=== PATIENT | male | born 1940 | race Caucasian/White ===

== ENCOUNTER 2017-08-06 15:00 | Emergency (ER) | payer MEDICARE, OTHER ==
[2017-08-06 15:09] VITALS: TEMP 96.9
--- NOTE | 2017-08-06 15:09 | ED.PDOC ---
History of Present Illness - General Chief Complaint: Exposure to Heat or Cold Stated Complaint: Dizziness, weakness, blurred vision Time Seen by Provider: 08/06/17 15:02 Source: patient, RN notes reviewed, Vital Signs reviewed Exam Limitations: no limitations - History of Present Illness Timing/Duration: 1-3 hours Severity: moderate Improving Factors: rest Worsening Factors: movement Associated Symptoms: diaphoresis, malaise, nausea/vomiting, weakness - pt reports he was out in the heat all day today and started to become dizzy, light headed and confused; after cooling down for the last 30 minutes patient reports that he is feeling better Allergies/Adverse Reactions: Allergies NO KNOWN ALLERGY Allergy (Unverified 09/06/13 05:38) Home Medications: Ambulatory Orders Amoxicillin & Pot Clavulanate [Augmentin] 875 mg PO BID #20 tab 09/06/13 Aspirin [Aspirin EC] 81 mg PO 09/06/13 Atorvastatin Calcium [Lipitor] 20 mg PO 09/06/13 Benadryl 09/06/13 Pantoprazole Sodium 40 mg PO 09/06/13 Pseudoephedrine HCl [Sudafed 24 Hour] 240 mg PO DAILY #10 tab 09/06/13 Tamsulosin [Flomax] 0.4 mg PO QD 09/06/13 Review of Systems - Review of Systems Constitutional: States: diaphoresis EENTM: States: blurred vision, double vision Respiratory: States: no symptoms reported Cardiology: Denies: chest pain, edema, palpitations, syncope Gastrointestinal/Abdominal: States: nausea. Denies: abdominal pain, constipation Genitourinary: Denies: dysuria, frequency, hematuria Musculoskeletal: States: muscle pain Skin: States: other - diaphoresis Neurological: States: weakness, other - confusion Endocrine: States: no symptoms reported Hematologic/Lymphatic: States: no symptoms reported Past Medical History (General) - Patient Medical History Hx Stroke: Yes - tia Hx Cardiac Disorders: Yes Hx Cancer: Yes - prostate - Vaccination History Hx Tetanus, Diphtheria Vaccination: No Family Medical History - Family History Father Family History: Unknown Physical Exam - Physical Exam General Appearance: Alert, No apparent distress Eye Exam: bilateral normal Ears, Nose, Throat: hearing grossly normal, normal ENT inspection, other - dry membranes Neck: non-tender, full range of motion, supple, normal inspection Respiratory: chest non-tender, lungs clear, normal breath sounds, no respiratory distress, no accessory muscle use Cardiovascular/Chest: normal peripheral pulses, regular rate, rhythm, no edema, no gallop, no JVD, no murmur Peripheral Pulses: radial,right: 2+ Gastrointestinal/Abdominal: non tender, soft Back Exam: normal inspection, no CVA tenderness, no vertebral tenderness Extremity: normal range of motion, non-tender, normal inspection, no pedal edema , no calf tenderness Neurologic: valve setter II-XII nml as tested, no motor/sensory deficits, alert, normal mood/affect, oriented x 3 Skin Exam: normal color Lymphatic: no adenopathy Progress - Progress Progress: 08/06/17 17:20 pt reports feels much improved, discussed lab results and need to abstain from further heat exposure. Will give patient another bolus of NS and recheck labs for improvement 08/06/17 18:13 08/06/17 15:12 URINALYSIS Stat 08/06/17 15:13 URINE DRUG SCREEN, 7 ASSAY Stat 08/06/17 15:30 EKG STAT Laboratory Results WBC 4.0 K/mm3 (4.8-10.8) L 08/06/17 15:00 RBC 4.44 M/mm3 (4.70-6.10) L 08/06/17 15:00 Hgb 13.3 gm/dL (14.0-18.0) L 08/06/17 15:00 Hct 39.7 % (42.0-52.0) L 08/06/17 15:00 MCV 89.3 fl (80.0-94.0) 08/06/17 15:00 MCH 29.9 pg (27.0-31.0) 08/06/17 15:00 MCHC 33.6 g/dL (33.0-37.0) 08/06/17 15:00 RDW 13.9 % (11.5-14.5) 08/06/17 15:00 Plt Count 190 K/mm3 (130-400) 08/06/17 15:00 MPV 8.5 fl (7.40-10.4) 08/06/17 15:00 Absolute Neuts (auto) 2.50 K/uL (1.8-6.8) 08/06/17 15:00 Absolute Lymphs (auto) 0.90 K/uL (1.0-3.4) L 08/06/17 15:00 Absolute Monos (auto) 0.50 K/uL (0.2-0.8) 08/06/17 15:00 Absolute Eos (auto) 0.10 K/uL (0.0-0.4) 08/06/17 15:00 Absolute Basos (auto) 0.00 K/uL (0.0-0.1) 08/06/17 15:00 Neutrophils % 62.8 % (42.0-78.0) 08/06/17 15:00 Lymphocytes % 23.4 % (20.0-50.0) 08/06/17 15:00 Monocytes % 11.6 % (2.0-9.0) H 08/06/17 15:00 Eosinophils % 1.6 % (1.0-5.0) 08/06/17 15:00 Basophils % 0.6 % (0.0-2.0) 08/06/17 15:00 Sodium 141 mmol/L (135-145) 08/06/17 15:00 Potassium 3.9 mmol/L (3.6-5.0) 08/06/17 15:00 Chloride 110 mmol/L (101-111) 08/06/17 15:00 Carbon Dioxide 23 mmol/L (21-31) 08/06/17 15:00 Anion Gap 11.9 (12-18) L 08/06/17 15:00 BUN 34 mg/dL (7-18) H 08/06/17 15:00 Creatinine 1.64 mg/dL (0.6-1.3) H 08/06/17 17:37 BUN/Creatinine Ratio 16.9 (10-20) 08/06/17 15:00 Random Glucose 88 mg/dL (70-105) 08/06/17 15:00 Serum Osmolality 288.3 mOsm/L (275-295) 08/06/17 15:00 Calcium 9.3 mg/dL (8.4-10.2) 08/06/17 15:00 Total Bilirubin 1.1 mg/dL (0.2-1.0) H 08/06/17 15:00 AST 26 IU/L (10-42) 08/06/17 15:00 ALT 26 IU/L (10-60) 08/06/17 15:00 Alkaline Phosphatase 84 IU/L (42-121) 08/06/17 15:00 Creatine Kinase 361 IU/L (38-174) H* 08/06/17 17:37 CK-MB (CK-2) 7.6 ng/mL (0.0-4.4) H* 08/06/17 17:37 CK-MB (CK-2) % 2.11 % (0.0-3.5) 08/06/17 17:37 Troponin I < 0.02 ng/mL (0.01-0.05) 08/06/17 17:37 Serum Total Protein 6.9 gm/dL (6.4-8.2) 08/06/17 15:00 Albumin 4.4 g/dl (3.2-5.5) 08/06/17 15:00 Globulin 2.5 gm/dL (2.3-3.5) 08/06/17 15:00 Albumin/Globulin Ratio 1.8 (1.1-1.9) 08/06/17 15:00 Ethyl Alcohol 0.00 mg/dL (0-79) 08/06/17 15:00 Departure - Departure Clinical Impression: Dehydration, Acute confusional state Heat stroke Qualifiers: Encounter type: initial encounter Qualified Code(s): T67.0XXA - Heatstroke and sunstroke, initial encounter Rhabdomyolysis Qualifiers: Rhabdomyolysis type: non-traumatic Qualified Code(s): M62.82 - Rhabdomyolysis Acute renal failure Qualifiers: Acute renal failure type: unspecified Qualified Code(s): N17.9 - Acute kidney failure, unspecified Time of Disposition: 18:14 Disposition: Discharge to Home or Self Care Condition: Good Departure Forms: ED Discharge - Pt. Copy, Patient Portal Self Enrollment Diet: resume usual diet Activity: increase activity as tolerated - no further heat exposure for 48 hours Home Medications: Ambulatory Orders Amoxicillin & Pot Clavulanate [Augmentin] 875 mg PO BID #20 tab 09/06/13 Aspirin [Aspirin EC] 81 mg PO 09/06/13 Atorvastatin Calcium [Lipitor] 20 mg PO 09/06/13 Benadryl 09/06/13 Pantoprazole Sodium 40 mg PO 09/06/13 Pseudoephedrine HCl [Sudafed 24 Hour] 240 mg PO DAILY #10 tab 09/06/13 Tamsulosin [Flomax] 0.4 mg PO QD 09/06/13 Additional Instructions: continue to fluid hydrate at home and avoid further heat exposure; return if symptoms return Critical Care Note - Critical Care Note Total Time (mins): 35
[2017-08-06] MEDS ORDERED: SODIUM CHLORIDE 0.9% 1000ML 1,000 ML IVS ONE ×2 (15:13→16:32)
--- NOTE | 2017-08-06 15:48 | CT ---
EXAM DESCRIPTION: Head CLINICAL HISTORY: ams COMPARISON: None available TECHNIQUE: Contiguous axial images through the head were obtained without intravenous contrast administration. Sagittal and coronal reconstructions were reviewed. FINDINGS: Ill-defined hypodensities are identified in the bilateral periventricular parietal white matter most likely representing chronic small vessel ischemic changes. No evidence of acute major vascular territorial infarct or intraparenchymal hemorrhage. No intra-axial or extra-axial fluid collections are identified. The ventricles and cisterns appear normal in caliber. The sella and suprasellar regions appear normal. The structures of the posterior fossa are intact. The globes are intact bilaterally. The visualized paranasal sinuses and mastoid air cells are well-aerated. Review of the bones demonstrates no gross instability. IMPRESSION: No CT evidence of acute intracranial process. This exam was performed according to our departmental dose-optimization program, which includes automated exposure control, adjustment of the mA and/or kV according to patient size and/or use of iterative reconstruction technique. Electronically signed by: Wendy Pedro MD 08/06/2017 3:47 PM CDT
[2017-08-06 19:37] VITALS: BP 129/65; O2SAT 99
== END 2017-08-06 19:37 | disposition home or self-care (01) ==
LOC: ER 15:00
DX: T67.0XXA Heatstroke and sunstroke, initial encounter (principal); E86.0 Dehydration; R41.0 Disorientation, unspecified; M62.82 Rhabdomyolysis; N17.9 Acute kidney failure, unspecified; Z86.73 Personal history of transient ischemic attack (TIA), and cerebral infarction without residual deficits; Z85.46 Personal history of malignant neoplasm of prostate; Z79.82 Long term (current) use of aspirin; X30.XXXA Exposure to excessive natural heat, initial encounter; Y92.9 Unspecified place or not applicable
CPT/HCPCS: 36415; 70450; 80053; 80307; 80320; 81001; 82550; 82553; 82565; 84484; 85025; 93005; J7030

== ENCOUNTER 2019-01-19 19:43 | Emergency (ER) | payer MEDICARE, OTHER ==
[2019-01-19] MEDS ORDERED: SODIUM CHLORIDE 0.9% (FLUSH) 10 ML SYG IV PRN (20:13)
[2019-01-19] MEDS: METOPROLOL TARTRATE INJ 5 MG/5 ML VIAL IV ONE ×2 (20:39→20:46)
[2019-01-19] MEDS ORDERED: hydrALAZINE HCl 20 MG/ML VIAL IV ONE ×2 (20:45→22:35)
--- NOTE | 2019-01-19 21:06 | RAD ---
EXAM DESCRIPTION: Chest,1 View CLINICAL HISTORY: confusion COMPARISON: None FINDINGS: Cardiac silhouette is within normal limits. There is no focal parenchymal or pleural disease. There is no acute osseous process visualized. IMPRESSION: No evidence of acute cardiopulmonary disease. Electronically signed by: Augustine Fernandez MD 01/19/2019 9:04 PM [facility]
--- NOTE | 2019-01-19 21:09 | CT ---
EXAM DESCRIPTION: Head CLINICAL HISTORY: confusion and acute memory deficit COMPARISON: August 06, 2017 TECHNIQUE: Contiguous axial images of the brain were obtained without the administration of intravenous contrast.This exam was performed according to our departmental dose-optimization program, which includes automated exposure control, adjustment of the mA and/or kV according to patient size and/or use of iterative reconstruction technique. FINDINGS: There is no acute intracranial hemorrhage or mass effect. Areas of low attenuation in the periventricular and subcortical white matter are nonspecific but suggestive of small vessel disease. There is generalized atrophy. Ventricular system is within normal limits. There is adequate blair-white matter differentiation. There is no skull fracture there is mucoperiosteal thickening of the right maxillary sinus and left ethmoid sinuses compatible with chronic sinusitis changes.. There is atherosclerosis. IMPRESSION: No acute intracranial abnormalities. Electronically signed by: Augustine Fernandez MD 01/19/2019 9:08 PM [facility]
--- NOTE | 2019-01-19 21:18 | ED.PDOC ---
History of Present Illness - General Chief Complaint: Neuro Symptoms/Deficits Stated Complaint: high bp, and cant remember things Time Seen by Provider: 01/19/19 20:13 Source: patient, RN notes reviewed, Vital Signs reviewed, family - Exam Limitations: no limitations - History of Present Illness Initial Comments: patient is a 78-year-old white male who presents with acute onset of confusion at approximately 6 PM this evening. Patient became confused, had no short-term memory and had difficulty remembering anything he's been working on today. Patient denied any headache, dizziness, blurry vision, chest pain, shortness of breath, nausea, vomiting, diarrhea. Patient also denies any paresthesias. Timing/Duration: 1-3 hours Severity: severe Improving Factors: nothing Worsening Factors: nothing Associated Symptoms: confusion Allergies/Adverse Reactions: Allergies NO KNOWN ALLERGY Allergy (Unverified 09/06/13 05:38) Home Medications: Ambulatory Orders Aspirin [Aspirin EC] 81 mg PO 09/06/13 Atorvastatin Calcium [Lipitor] 20 mg PO 09/06/13 Pantoprazole Sodium 40 mg PO 09/06/13 Tamsulosin [Flomax] 0.4 mg PO QD 09/06/13 Clonidine HCl 0.1 mg PO BID #10 tab 01/19/19 Review of Systems - Review of Systems Constitutional: States: see HPI. Denies: chills, fever, malaise, weakness EENTM: States: no symptoms reported. Denies: blurred vision, double vision, nose congestion Respiratory: States: no symptoms reported. Denies: cough, orthopnea Cardiology: States: no symptoms reported. Denies: chest pain, palpitations, syncope Gastrointestinal/Abdominal: States: no symptoms reported. Denies: abdominal pain Genitourinary: States: no symptoms reported Musculoskeletal: States: no symptoms reported Skin: States: no symptoms reported Neurological: States: see HPI. Denies: paresthesia, pre-existing deficit, seizure, tingling, tremors Endocrine: States: no symptoms reported Hematologic/Lymphatic: States: no symptoms reported All other Systems: Reviewed and Negative Past Medical History (General) - Patient Medical History Hx Seizures: No Hx Stroke: Yes - tia Hx Dementia: No Hx Asthma: No Hx of COPD: No Hx Cardiac Disorders: Yes Hx Congestive Heart Failure: No Hx Pacemaker: No Hx Hypertension: Yes Hx Thyroid Disease: No Hx Diabetes: No Hx Gastroesophageal Reflux: No Hx Renal Disease: No Hx Cancer: Yes - prostate Hx of HIV: No Hx Hepatitis C: No Hx MRSA: No Surgical History: other - Vaccination History Hx Tetanus, Diphtheria Vaccination: No Hx Influenza Vaccination: Yes Hx Pneumococcal Vaccination: Yes Immunizations Up to Date: Yes - Social History Hx Tobacco Use: No Hx Chewing Tobacco Use: No Hx Alcohol Use: No Hx Substance Use: No Hx Substance Use Treatment: No Hx Depression: No Feels Threatened In Home Enviroment: No Feels Threatened In a Relationship: No Hx Physical Abuse: No Hx Emotional Abuse: No Hx Suspected Abuse: No - Activities of Daily Living Hospice Agency (if applicable):: None - Female History Patient is a Female of Child Bearing Age (10 -59 yrs old): No Family Medical History - Family History Father Family History: Unknown Living Status: Physical Exam - Physical Exam General Appearance: Alert, Comfortable, Well Developed, Well Groomed, Well Hydrated, Well Nourished Eye Exam: bilateral normal ENT Exam: normal ENT inspection, hearing grossly normal, pharynx normal Neck: non-tender, full range of motion, supple, normal inspection, trachea midline Respiratory: chest non-tender, lungs clear, normal breath sounds, no respiratory distress, no accessory muscle use Cardiovascular/Chest: normal peripheral pulses, regular rate, rhythm, no edema, no gallop, no JVD, no murmur Peripheral Pulses: radial,right: 2+, radial,left: 2+ Gastrointestinal/Abdominal: normal bowel sounds, non tender, soft, no organomegaly, no pulsatile mass Back Exam: normal inspection, no CVA tenderness, no vertebral tenderness Extremities Exam: non-tender, normal range of motion, no evidence of injury Mental Status: alert, oriented x 3 [employer] Exam: normal hearing, normal speech, PERRL Coordination/Gait: normal finger to nose, normal gait, negative Romberg's sign Motor/Sensory: no motor deficit, no sensory deficit, no pronator drift, negative Babinski's sign, positive Babinski's sign Skin Exam: normal color, warm/dry Progress - Progress Progress: differential diagnosis: CVA, TIA, hypertensive encephalopathy, toxic K Chin among others 01/19/19 21:24 Patient's symptoms have markedly improved and essentially have resolved after his blood pressure was better controlled. Waiting final results of all laboratory tests. 01/19/19 21:49 Patient's lab results are unremarkable. Symptoms have resolved after better control the blood pressure. Plan on discharge home at this time. And his and they voice understanding and agreement. Patient to follow up with PCP in the morning for further evaluation and medication management. 01/19/19 21:50 Wolf Trivedi M.D. #[id number] - Results/Orders Results/Orders: 01/19/19 20:13 IV Care:Saline Lock per Protoc QSHIFT Telemetry .ONCE Sodium Chloride 0.9% (Flush) [Saline Flush Syringe] 10 ml IV PRN PRN 01/19/19 20:14 EKG Assessment ONCE 01/19/19 20:15 EKG STAT URINALYSIS Stat Laboratory Results - last 24 hr 01/19/19 01/19/19 01/19/19 20:15 20:15 20:15 WBC 4.6 L RBC 4.87 Hgb 14.1 Hct 43.2 MCV 88.7 MCH 29.0 MCHC 32.7 L RDW 14.0 Plt Count 188 MPV 8.4 Absolute Neuts (auto) 3.10 Absolute Lymphs (auto) 0.80 L Absolute Monos (auto) 0.40 Absolute Eos (auto) 0.30 Absolute Basos (auto) 0.00 Neutrophils % 66.7 Lymphocytes % 18.1 L Monocytes % 8.3 Eosinophils % 6.0 H Basophils % 0.9 PT 9.5 INR 0.95 PTT (SP) 26.5 Sodium 138 Potassium 3.6 Chloride 105 Carbon Dioxide 24 Anion Gap 12.6 BUN 18 Creatinine 1.05 BUN/Creatinine Ratio 17.1 POC Glucose Random Glucose 92 Serum Osmolality 277.2 Calcium 9.3 Total Bilirubin 0.6 AST 25 ALT 28 Alkaline Phosphatase 101 Creatine Kinase 184 H CK-MB (CK-2) 4.4 CK-MB (CK-2) % 2.39 Troponin I < 0.02 Serum Total Protein 7.1 Albumin 4.2 Globulin 2.9 Albumin/Globulin Ratio 1.4 01/19/19 20:23 WBC RBC Hgb Hct MCV MCH MCHC RDW Plt Count MPV Absolute Neuts (auto) Absolute Lymphs (auto) Absolute Monos (auto) Absolute Eos (auto) Absolute Basos (auto) Neutrophils % Lymphocytes % Monocytes % Eosinophils % Basophils % PT INR PTT (SP) Sodium Potassium Chloride Carbon Dioxide Anion Gap BUN Creatinine BUN/Creatinine Ratio POC Glucose 78 Random Glucose Serum Osmolality Calcium Total Bilirubin AST ALT Alkaline Phosphatase Creatine Kinase CK-MB (CK-2) CK-MB (CK-2) % Troponin I Serum Total Protein Albumin Globulin Albumin/Globulin Ratio EXAM DESCRIPTION: Chest,1 View CLINICAL HISTORY: confusion COMPARISON: None FINDINGS: Cardiac silhouette is within normal limits. There is no focal parenchymal or pleural disease. There is no acute osseous process visualized. IMPRESSION: No evidence of acute cardiopulmonary disease. Electronically signed by: Augustine Fernandez MD 01/19/2019 9:04 PM EXAM DESCRIPTION: Head CLINICAL HISTORY: confusion and acute memory deficit COMPARISON: August 06, 2017 TECHNIQUE: Contiguous axial images of the brain were obtained without the administration of intravenous contrast.This exam was performed according to our departmental dose-optimization program, which includes automated exposure control, adjustment of the mA and/or kV according to patient size and/or use of iterative reconstruction technique. FINDINGS: There is no acute intracranial hemorrhage or mass effect. Areas of low attenuation in the periventricular and subcortical white matter are nonspecific but suggestive of small vessel disease. There is generalized atrophy. Ventricular system is within normal limits. There is adequate blair- white matter differentiation. There is no skull fracture there is mucoperiosteal thickening of the right maxillary sinus and left ethmoid sinuses compatible with chronic sinusitis changes.. There is atherosclerosis. IMPRESSION: No acute intracranial abnormalities. Electronically signed by: Augustine Fernandez MD 01/19/2019 9:08 PM EKG performed on 19 January 2019 at 2020 hrs.: Sinus rhythm with first-degree AV block at 62 bpm, normal axis deviation, no ST or T-wave changes, otherwise normal EKG. G available. - EKG/XRAY/CT CT Ordered: Yes Departure - Departure Clinical Impression: Hypertensive encephalopathy, Accelerated hypertension, Confusion, Acute confusional state Time of Disposition: 21:58 Disposition: Discharge to Home or Self Care Condition: Good Departure Forms: ED Discharge - Pt. Copy, Patient Portal Self Enrollment Instructions: DI for Altered Mental Status, Malignant Hypertension (DC), Delirium (Confusion) (DC) Referrals: Keith Salgado MD [Active Staff] - 01/20/19 Prescriptions: Clonidine HCl 0.1 mg PO BID #10 tab Home Medications: Ambulatory Orders Aspirin [Aspirin EC] 81 mg PO 09/06/13 Atorvastatin Calcium [Lipitor] 20 mg PO 09/06/13 Pantoprazole Sodium 40 mg PO 09/06/13 Tamsulosin [Flomax] 0.4 mg PO QD 09/06/13 Clonidine HCl 0.1 mg PO BID #10 tab 01/19/19
[2019-01-19] MEDS ORDERED: cloNIDine HCL 0.1 MG TAB PO ONE (22:00)
[2019-01-20 02:29] VITALS: BP 166/78; TEMP 97.2; O2SAT 97
== END 2019-01-19 23:15 | disposition home or self-care (01) ==
LOC: ER 19:43
DX: I67.4 Hypertensive encephalopathy (principal); I10 Essential (primary) hypertension; R41.0 Disorientation, unspecified; I51.9 Heart disease, unspecified; Z86.73 Personal history of transient ischemic attack (TIA), and cerebral infarction without residual deficits; Z85.46 Personal history of malignant neoplasm of prostate; Z79.899 Other long term (current) drug therapy; Z79.82 Long term (current) use of aspirin
CPT/HCPCS: 36415; 36416; 70450; 71045; 80053; 81001; 82550; 82553; 82948; 84484; 85025; 85610; 85730; 93005; J0360